=== PATIENT | female | born 2000 | race Caucasian/White ===

== ENCOUNTER 2021-01-28 15:47 | Emergency (ER) | payer OTHER ==
[2021-01-28 17:32] LABS: HEMOGLOBIN 12.3 gm/dl (12.3-15.3); RED BLOOD COUNT 4.79 M/UL (4.00-5.10); WHITE BLOOD COUNT 8.2 K/UL (4.5-11.0)
[2021-01-28 17:54] LABS: BUN/CREATININE RATIO 17 (0-10)
== END 2021-01-28 22:00 | disposition home or self-care (01) ==
LOC: ER1 15:47
PROVIDERS: Emergency Medicine; Nurse Practitioner
DX: R55 Syncope and collapse (principal); R00.0 Tachycardia, unspecified
CPT/HCPCS: 71045; 80048; 80307; 81001; 82550; 82553; 83874; 84484; 84703; 85025; 93005; 99285